=== PATIENT | male | born 1990 | race Caucasian/White ===

== ENCOUNTER 2020-01-06 07:49 | Outpatient (CLI) | payer OTHER ==
[2020-01-06 11:42] LABS: #Eosinphils 0.4 thou/uL (0.0-0.7); #Lymphocytes 2.4 thou/uL (1.20-3.40); #Monocytes 0.7 thou/uL (0.11-0.59); #Neutrophils 5.5 thou/uL (1.40-6.50); %Basophils 0.2 % (0.0-1.0); %Eosinophils 4.2 % (0.0-10.0); %Monocytes 8.1 % (0.0-10.0); %Neutrophils 60.5 % (42.0-75.0); Hemoglobin 16.6 g/dL (14.0-18.0); Mean Corpuscular HGB CONC 34.8 g/dL (32.0-36.0); Mean Corpuscular Hemoglobin 31.5 pg (27.0-31.0); Mean Corpuscular Volume 90.4 fL (78.0-98.0); Mean Platelet Volume 10.2 fL (7.4-10.4); Platelet Count 250 thou/uL (130-400); RBC Distribution Width 12.1 % (11.5-14.5); Red Blood Cell (RBC) Count 5.28 mill/uL (4.70-6.10)
[2020-01-06 12:34] LABS: Calcium 9.3 mg/dL (7.8-10.44); Chloride 108 mmol/L (98-107); Potassium 4.1 mmol/L (3.5-5.1); Sodium 141 mmol/L (136-145)
[2020-01-06 12:35] LABS: Glucose 98 mg/dL (70-105)
[2020-01-06 12:37] LABS: Anion Gap 15 mmol/L (10-20); Carbon Dioxide 22 mmol/L (22-29)
[2020-01-06 12:38] LABS: Calc. Creatinine Clearance 0 mL/min (70-130); Estimated GFR-MDRD Greater than 90
[2020-01-06 12:39] LABS: BUN (Urea Nitrogen) 15 mg/dL (8.9-20.6)
[2020-01-06 17:46] LABS: SARS-CoV-2 MS2 Positive; SARS-CoV-2 N Gene Negative; SARS-CoV-2 S Gene Negative; SARS-CoV-2 orf1ab Negative
== END 2020-01-06 07:50 | disposition home or self-care (01) ==
LOC: LABBT 07:49
PROVIDERS: ATTEND Specialist
DX: Z01.812 Encounter for preprocedural laboratory examination (principal); Z11.59 Encounter for screening for other viral diseases; K42.9 Umbilical hernia without obstruction or gangrene
CPT/HCPCS: 80048; 85025; 87635; U0003

== ENCOUNTER 2020-01-13 06:29 | Outpatient (CLI) | payer OTHER ==
[2020-01-13 18:40] LABS: SARS-CoV-2 MS2 Positive; SARS-CoV-2 N Gene Negative; SARS-CoV-2 S Gene Negative; SARS-CoV-2 orf1ab Negative
== END 2020-01-13 06:30 | disposition home or self-care (01) ==
LOC: LABBT 06:29
PROVIDERS: ATTEND Specialist
DX: Z01.812 Encounter for preprocedural laboratory examination (principal); Z11.59 Encounter for screening for other viral diseases; K42.9 Umbilical hernia without obstruction or gangrene
CPT/HCPCS: 87635; U0003

== ENCOUNTER 2020-01-15 08:04 | Day surgery (SDC) | payer OTHER ==
[2020-01-06 10:47] VITALS: BMI 38.4
[2020-01-15] MEDS ORDERED: Acetaminophen 500 MG TAB ONE (08:13)
[2020-01-15] MEDS ORDERED: Ketorolac Tromethamine 30 MG/ML VIAL ONE ×2 (08:13→12:46)
[2020-01-15] MEDS ORDERED: Midazolam HCl 2 mg/2 ml Vial ONE ×2 (08:39→09:02)
[2020-01-15] MEDS ORDERED: Bupivacaine 0.25% HCL 30 ML VIAL ONE (08:57)
[2020-01-15] MEDS ORDERED: Lidocaine 1% w/Epinephrine 1:100K 20 ML VIAL ONE (08:57)
[2020-01-15] MEDS ORDERED: Fentanyl 100 MCG/2 ML VIAL ONE (09:02)
[2020-01-15] MEDS ORDERED: Lidocaine 1% PF 5 ML VIAL ONE (12:46)
[2020-01-15] MEDS ORDERED: PROPOFOL 200 MG/20 ML VIAL ONE (12:46)
--- NOTE | 2020-01-15 17:13 | OP ---
DATE OF PROCEDURE: 01/15/2020 PREOPERATIVE DIAGNOSIS: Umbilical hernia. POSTOPERATIVE DIAGNOSIS: Umbilical hernia. PROCEDURE PERFORMED: Umbilical hernia repair with mesh using 4.5-cm Parietex mesh patch. ANESTHESIA: General with laryngeal mask airway. INDICATIONS: The patient is a 29-year-old white male. He presents with obvious umbilical hernia. He was taken to operating room at this time for repair. DESCRIPTION OF OPERATION: Informed consent was obtained. The patient was taken to the operating room, where general anesthesia was obtained with the patient in supine position. Abdomen was prepped with ChloraPrep and draped in sterile fashion. Local anesthetic was infiltrated using a mixture of 1% lidocaine with epinephrine and 0.25% Marcaine. Infraumbilical curvilinear incision was created. Dissection was carried through skin and subcutaneous tissue down to the fascia. The underlying hernia was quickly visualized and dissected. The umbilicus was dissected off the underlying fascia and hernia sac and reflected superiorly. The hernia was circumscribed at its base with electrocautery. This appeared to primarily be herniated preperitoneal fat. This was debrided and excised using electrocautery. Preperitoneal dissection was carried out below the fascia using blunt digital dissection. A 4.5-cm Parietex mesh patch was obtained and placed in the preperitoneal space. The anterior leaflet of the mesh was secured to the fascia with interrupted sutures of 0 Prolene in 4 quadrants. Additional local anesthetic was infiltrated into the fascia and preperitoneal tissue. The umbilicus was secured down to the fascia with 2 interrupted sutures of 3-0 Vicryl. The wound was closed in layers with 3-0 and 4-0 Monocryl. Additional local anesthetic was instilled. Dermabond was placed externally. Compression dressing was applied using the Tegaderm and cotton balls. There were no complications. Blood loss was negligible. The patient tolerated the procedure well and was taken to recovery room in stable condition. Job ID: [id number]
== END 2020-01-15 11:50 ==
LOC: SDC 08:04
PROVIDERS: ATTEND Specialist
PROC: 0WUF0JZ Supplement Abdominal Wall with Synthetic Substitute, Open Approach (ICD-10-PCS; principal; 2020-01-15)
DX: K42.9 Umbilical hernia without obstruction or gangrene (principal); Z87.891 Personal history of nicotine dependence; Z91.018 Allergy to other foods
CPT/HCPCS: J0690; J1885; J2001; J2250; J2704; J3010; S0020

== ENCOUNTER 2020-08-16 19:30 | Outpatient (CLI) | payer OTHER | END 2020-08-16 19:31 | disposition home or self-care (01) | LOC: SLEEPLAB 19:30 | PROVIDERS: ATTEND Family Medicine | DX: G47.33 Obstructive sleep apnea (adult) (pediatric) (principal); R53.83 Other fatigue; G47.00 Insomnia, unspecified; G47.10 Hypersomnia, unspecified | CPT/HCPCS: 95811 ==